=== PATIENT | female | born 1980 ===

== ENCOUNTER 2023-04-21 00:57 | Outpatient (RCR) | payer MEDICAID, SELFPAY ==
[2023-04-21] MEDS: DALBAVANCIN 1,500 MG in DEXTROSE 5%-WATER 325 ML 650 MG IVPB (13:15)
== END 2023-04-27 23:59 | disposition home or self-care (01) ==
LOC: INF 00:57
PROVIDERS: PCP Registered Nurse; Visit Provider Nurse Practitioner Acute Care
DX: R78.81 Bacteremia (principal)
CPT/HCPCS: 96365; J0875

== ENCOUNTER 2023-04-28 02:21 | Outpatient (RCR) | payer MEDICAID, SELFPAY ==
[2023-04-28] MEDS: Normal Saline Flush 10 ML SYR IVP (12:59)
[2023-04-28] MEDS: DALBAVANCIN 1,500 MG in DEXTROSE 5%-WATER 325 ML 650 MG IVPB (13:28)
== END 2023-05-27 23:59 | disposition home or self-care (01) ==
LOC: INF 02:21
PROVIDERS: PCP Registered Nurse; Visit Provider Nurse Practitioner Acute Care
DX: R78.81 Bacteremia (principal)
CPT/HCPCS: 96365; J0875